=== PATIENT | female | born 1965 | race Caucasian/White ===

== ENCOUNTER 2018-02-14 10:15 | Emergency (ER) | payer OTHER ==
[~2018-02-14] VITALS: Ht 167.6 cm; Wt 63.5 kg
[2018-02-14 10:15] VITALS: BP 157/96
--- NOTE | 2018-02-14 10:32 | NUR ---
URINE SAMPLE COLLECTED
--- NOTE | 2018-02-14 10:49 | NUR ---
DR STEPHEN AT BEDSIDE FOR EVAL.
[2018-02-14] MEDS ORDERED: CEFTRIAXONE 500 MG VIAL ONE (10:55)
[2018-02-14] MEDS ORDERED: WATER FOR INJECTION,STERILE 10 ML ONE (10:56)
[2018-02-14] MEDS ORDERED: AZITHROMYCIN 250 MG TABLET ONE (10:56)
[2018-02-14] MEDS: CEFTRIAXONE 500 MG VIAL IM ONE (11:05)
[2018-02-14] MEDS: AZITHROMYCIN 250 MG TABLET PO ONE (11:05)
[2018-02-14 11:12] LABS: APPEARANCE,URINE Cloudy (CLEAR); BILIRUBIN,URINE Negative (NEGATIVE); BLOOD, URINE Trace-lysed Ery/uL (NEGATIVE); COLOR,URINE Yellow (YELLOW); KETONES,URINE Negative (NEGATIVE); LEUKOCYTE ESTERASE ,URINE Large (NEGATIVE); NITRITE, URINE Negative (NEGATIVE); PROTEIN,URINE Negative (NEGATIVE); UGLUCOSE Negative (NEGATIVE)
[2018-02-14 11:19] LABS: BACTERIA,URINE Moderate /HPF (None Seen); SQUAMOUS EPITHELIAL CELL,UR Few /HPF (None Seen); WBC,URINE 81-100 /HPF (0-3)
== END 2018-02-14 11:32 ==
LOC: ER 10:17
DX: N39.0 Urinary tract infection, site not specified (principal); Z20.2 Contact with and (suspected) exposure to infections with a predominantly sexual mode of transmission
CPT/HCPCS: 81001; 84703; 87086; 87491; 87591; 96372; 99284; A4606; J0696; Z7610; 81000-TC